=== PATIENT | male | born 1945 | race Caucasian/White ===

== ENCOUNTER 2018-01-19 15:46 | Inpatient (IN) ==
[2018-01-19] MEDS ORDERED: Sod Chloride 0.9% Inj 1,000 ML IV.SIG ONE (16:08)
[2018-01-19] MEDS ORDERED: Ibuprofen 600 MG Tablet PO ONE (16:08)
--- NOTE | 2018-01-19 16:11 | ED ---
HPI General Chief complaint: Urogenital-Male Stated complaint: EVAC/General Medical Time Seen by Provider: 01/19/18 15:54 History of Present Illness HPI narrative: Patient is a 72-year-old male presents emergency department with nausea vomiting and feeling very rundown. Patient was just released from a hospital in [place] yesterday after an overnight stay for diagnosis of prostatitis. He states is taken to dose of Macrobid. He drove down here on vacation about 50 miles from here he started becoming very queasy, his grandson finished a trip and then when they checked into the hotel he decided he needed to come to the hospital. Arrived by EVAC, 102.8 fever prior to arrival. He has no physical complaints of pain just feels very rundown. On review of system has noticed some discolored urine as well. No chest pain no shortness of breath no cough no congestion peer Related Data Home Medications Medication Instructions Recorded Confirmed Novolin N NPH U-100 Insulin 30 units INJ DAILY 01/19/18 01/19/18 Novolin R Regular U-100 Insuln 30 units INJ BID 01/19/18 01/19/18 alprazolam 0.25 mg PO BID 01/19/18 01/19/18 atorvastatin 80 mg PO DAILY 01/19/18 01/19/18 losartan-hydrochlorothiazide 1 tab PO DAILY 01/19/18 01/19/18 nitrofurantoin monohyd/m-cryst 100 mg PO BID 01/19/18 01/19/18 [Macrobid] pantoprazole 40 mg PO BID 01/19/18 01/19/18 Allergies Allergy/AdvReac Type Severity Reaction Status Date / Time azithromycin Allergy Unknown unknown Verified 01/19/18 16:08 Review of Systems Except as stated in HPI: all other systems reviewed are negative PMFSH Medical History Medical History Anxiety (Acute) Diabetes (Acute) High cholesterol (Acute) Hypertension (Acute) Surgical History Surgical History Hx of cholecystectomy (Acute) Social History Social History Substance History: No History of Abuse Second Hand Smoke Exposure: No Smoking Status: Never smoker How Often Do You Have a Drink Containing Alcohol: Never Recent Travel in [facility] within the Last 8 Weeks: Yes Recent Out of Country Travel within the Last 8 Weeks: No Exam Narrative Exam Narrative: GENERAL: Well-developed well-nourished, ill-appearing male. SKIN: Focused skin assessment warm/dry. HEAD: Atraumatic. Normocephalic. EYES: Pupils equal and round. No scleral icterus. No injection or drainage. ENT: No nasal bleeding or discharge. Mucous membranes pink and moist. NECK: Trachea midline. No JVD. CARDIOVASCULAR: Regular rhythm with mild tachycardia. no murmur appreciated. RESPIRATORY: No accessory muscle use. Clear to auscultation. Breath sounds equal bilaterally. GASTROINTESTINAL: Abdomen soft, non-tender, nondistended. Hepatic and splenic margins not palpable. MUSCULOSKELETAL: No obvious deformities. No clubbing. No cyanosis. No edema. NEUROLOGICAL: Awake and alert. No obvious cranial nerve deficits. Motor grossly within normal limits. Normal speech. PSYCHIATRIC: Appropriate mood and affect; insight and judgment normal. Course Initial Documented Vital Signs Temperature 102.8 F H 01/19/18 15:51 Pulse Rate 95 H 01/19/18 15:51 Respiratory Rate 19 01/19/18 15:51 Blood Pressure 220/97 H 01/19/18 15:51 Pulse Oximetry 94 L 01/19/18 15:51 Last Documented Vital Signs Temperature 100.1 F H 01/19/18 19:55 Pulse Rate 89 01/19/18 19:55 Respiratory Rate 18 01/19/18 19:55 Blood Pressure 106/62 01/19/18 19:55 Pulse Oximetry 96 01/19/18 19:55 Critical Care Time Critical Care Time: Yes Total Critical Care Time: 35 Attestation: Aggregate critical care time was 35 minutes. Time to perform other separately billable procedures was not included in the critical care time. My time did not include minutes spent treating any other patients simultaneously or on activities that did not directly contribute to the patient's treatment. The services I provided to this patient were to treat and/or prevent clinically significant deterioration that could result in: , Disability, Organ failure. I provided critical care services requiring my management, as noted below: Chart data review, documentation time, medication orders and management, vital sign assessments/reviewing monitor data, ordering and reviewing lab tests, ordering and interpreting/reviewing x-rays and diagnostic studies, care of the patient and discussion of the patient with the admitting physicians. Medical Decision Making MDM Narrative Medical decision making narrative: Patient room to the emergency department, he appears ill and toxic, blood cultures drawn, IV bolus was given 1 L normal saline, started on broad-spectrum antibiotics vancomycin and Zosyn. The patient was discussed that his consent with Dr. Machuca infectious disease doctor in [facility]. Her number is [phone]. Machuca states that his symptoms really started in July, he had a CT which showed a renal cyst and a thickened bladder wall. he was started on antibiotics.. He followed up with urologist and ultimately had both cystoscopy and biopsy of this cyst which did not show any infectious etiology. Over the next few months he had recurrent UTI symptoms, intermittently he grew out E. coli which was resistant to fluoroquinolones, and occasionally had UA which was negative, and urine cultures have been intermittently positive intermittently at the end of December he again had UTI symptoms which grew out E. coli. His urologist then consult to Dr. Machuca, the patient's family contacted Dr. Machuca and stated that they would like to be worked up expediently because of her going on vacation, January 16 he was admitted electively to their hospital in [place], UA was positive culture was negative. He was put on a few days of cefepime while in the hospital and ultimately diagnosed with chronic prostatitis and discharged on Macrobid which he has been taking. He had not been previously tested for gonorrhea chlamydia. Nonetheless today the patient does not appear well. I have started him on vancomycin and Zosyn, his lactic acid is negative, his white blood cell count per Dr. Machuca usually runs about 5.9, it is up to 9 today with a left shift. No bandemia. Creatinine once about 1.3-1.4. Today he is 1.4. Throughout his workup since July he has never had a diagnosed fever. I do not appreciate any other sources of infection on the patient's physical exam. Chest x-ray negative, CT abdomen pelvis does not show any obvious source of infection but does show a thickened bladder wall. Downs catheter was inserted, UA is negative. Patient appears somewhat improved but still he appeared very ill on arrival to the hospital and I think further workup is warranted at this time as an inpatient. This was discussed with the family and they are agreeable. Differential Diagnosis Differential Diagnosis: Sepsis, UTI, acute abdomen unlikely, pneumonia, indication reaction less likely. Lab Data Result diagrams: 01/19/18 16:13 01/19/18 16:13 Lab Results 07/14/18 07/14/18 07/14/18 Range/Units 16:08 16:13 16:13 WBC 9.2 (4.0-11.0) th/mm3 RBC 4.78 (4.50-5.90) mil/mm3 Hgb 15.8 (13.0-17.0) gm/dL Hct 45.1 (39.0-51.0) % MCV 94.3 (80.0-100.0) fL MCH 33.1 (27.0-34.0) pg MCHC 35.1 (32.0-36.0) % RDW 13.3 (11.6-17.2) % Plt Count 146 L (150-450) th/mm3 MPV 7.3 (7.0-11.0) fL Neut % (Auto) 89.0 H (16.0-70.0) % Lymph % (Auto) 6.0 L (9.0-44.0) % Alexander % (Auto) 3.9 (0.0-8.0) % Eos % (Auto) 0.9 (0.0-4.0) % Baso % (Auto) 0.2 (0.0-2.0) % Neut # (Auto) 8.2 H (1.8-7.7) th/mm3 Lymph # (Auto) 0.6 L (1.0-4.8) th/mm3 Alexander # (Auto) 0.4 (0.0-0.9) th/mm3 Eos # (Auto) 0.1 (0.0-0.4) th/mm3 Baso # (Auto) 0.0 (0.0-0.2) th/mm3 WBC Differential . Differential Comment Auto diff final Sodium 140 (136-145) meq/L Potassium 3.6 (3.5-5.1) meq/L Chloride 105 (98-107) meq/L Carbon Dioxide 26.7 (21.0-32.0) meq/L Anion Gap 8 (5-15) meq/L BUN 14 (7-18) mg/dL Creatinine 1.43 H (0.60-1.30) mg/dL Estimated GFR 48 L (>89) mL/min Random Glucose 197 H (74-106) mg/dL Lactic Acid 1.6 (0.4-2.0) mmol/L Calcium 8.7 (8.5-10.1) mg/dL Total Bilirubin 0.9 (0.2-1.0) mg/dL AST 22 (15-37) U/L ALT 30 (12-78) U/L Alkaline Phosphatase 108 (45-117) U/L Total Protein 7.8 (6.4-8.2) g/dL Albumin 3.9 (3.4-5.0) g/dL Urine Color (Yellw/Straw) Urine Clarity (Clear) Urine pH (5.0-8.5) Ur Specific [place] (1.002-1.035) Urine Protein (Neg-Trace) mg/dL Urine Glucose (UA) (Negative) mg/dL Urine Ketones (Negative) mg/dL Urine Occult Blood (Negative) Urine Nitrate (Negative) Urine Bilirubin (Negative) Urine Urobilinogen (Less than 2) mg/dL Ur Leukocyte Esterase (Negative) Urine RBC (0-3) /hpf Urine WBC (0-5) /hpf Urine Mucus (Occasional) /lpf Micro UA Comment Urine Culture Comments Chlam trachomat DNA PCR (Not Detect) N.gonorrhoeae DNA (PCR) (Not Detect) 01/19/18 01/19/18 Range/Units 18:04 18:04 WBC (4.0-11.0) th/mm3 RBC (4.50-5.90) mil/mm3 Hgb (13.0-17.0) gm/dL Hct (39.0-51.0) % MCV (80.0-100.0) fL MCH (27.0-34.0) pg MCHC (32.0-36.0) % RDW (11.6-17.2) % Plt Count (150-450) th/mm3 MPV (7.0-11.0) fL Neut % (Auto) (16.0-70.0) % Lymph % (Auto) (9.0-44.0) % Alexander % (Auto) (0.0-8.0) % Eos % (Auto) (0.0-4.0) % Baso % (Auto) (0.0-2.0) % Neut # (Auto) (1.8-7.7) th/mm3 Lymph # (Auto) (1.0-4.8) th/mm3 Alexander # (Auto) (0.0-0.9) th/mm3 Eos # (Auto) (0.0-0.4) th/mm3 Baso # (Auto) (0.0-0.2) th/mm3 WBC Differential Differential Comment Sodium (136-145) meq/L Potassium (3.5-5.1) meq/L Chloride (98-107) meq/L Carbon Dioxide (21.0-32.0) meq/L Anion Gap (5-15) meq/L BUN (7-18) mg/dL Creatinine (0.60-1.30) mg/dL Estimated GFR (>89) mL/min Random Glucose (74-106) mg/dL Lactic Acid (0.4-2.0) mmol/L Calcium (8.5-10.1) mg/dL Total Bilirubin (0.2-1.0) mg/dL AST (15-37) U/L ALT (12-78) U/L Alkaline Phosphatase (45-117) U/L Total Protein (6.4-8.2) g/dL Albumin (3.4-5.0) g/dL Urine Color Yellow (Yellw/Straw) Urine Clarity Clear (Clear) Urine pH 6.0 (5.0-8.5) Ur Specific [place] 1.013 (1.002-1.035) Urine Protein Negative (Neg-Trace) mg/dL Urine Glucose (UA) 150 H (Negative) mg/dL Urine Ketones Negative (Negative) mg/dL Urine Occult Blood Small H (Negative) Urine Nitrate Negative (Negative) Urine Bilirubin Negative (Negative) Urine Urobilinogen Less than 2 (Less than 2) mg/dL Ur Leukocyte Esterase Negative (Negative) Urine RBC 3 (0-3) /hpf Urine WBC 2 (0-5) /hpf Urine Mucus Few H (Occasional) /lpf Micro UA Comment Cath-culture not ind Urine Culture Comments Cath-cult not ind Chlam trachomat DNA PCR Not detected (Not Detect) N.gonorrhoeae DNA (PCR) Not detected (Not Detect) Imaging Data Radiologist's impression: Chest X-Ray 01/19/18 16:08 CONCLUSION: Cardiomegaly. No acute pulmonary disease. Abdomen/Pelvis CT 01/19/18 18:30 CONCLUSION: 1. No acute abnormality is seen. 2. Several low density masses in the liver. These are nonspecific. They likely represent cysts. 3. 2 right renal masses. These are nonspecific on this noncontrast CT examination. They likely represent cysts. 4. 1.3 cm left adrenal gland adenoma. 5. Downs catheter in place. Discharge Plan Discharge Disposition Patient Disposition: 30 Still Patient Discharge Condition Condition: Fair Discharge Details Diagnosis: Sepsis Physicians Team ED Provider: Osmin Silveira Primary Care Provider: NON STAFF,PROVIDER Attending Provider: Eliana Quintanilla Status ED Status: Admitted Patient
[2018-01-19 16:43] LABS: Baso % (Auto) 0.2 % (0.0-2.0); Eos # (Auto) 0.1 th/mm3 (0.0-0.4); Eos % (Auto) 0.9 % (0.0-4.0); Hematocrit 45.1 % (39.0-51.0); Hemoglobin 15.8 gm/dL (13.0-17.0); Lymph # (Auto) 0.6 th/mm3 (1.0-4.8); Mean Corpuscular HGB Conc 35.1 % (32.0-36.0); Mean Corpuscular Hemoglobin 33.1 pg (27.0-34.0); Mean Corpuscular Volume 94.3 fL (80.0-100.0); Mean Platelet Volume 7.3 fL (7.0-11.0); Mono # (Auto) 0.4 th/mm3 (0.0-0.9); Mono % (Auto) 3.9 % (0.0-8.0); Neut # (Auto) 8.2 th/mm3 (1.8-7.7); Platelet Count 146 th/mm3 (150-450); Red Blood Count 4.78 mil/mm3 (4.50-5.90); Red Cell Distribution Width 13.3 % (11.6-17.2); White Blood Count 9.2 th/mm3 (4.0-11.0)
[2018-01-19 16:51] LABS: Alkaline Phosphatase 108 U/L (45-117); Total Protein 7.8 g/dL (6.4-8.2)
[2018-01-19 16:52] LABS: Alanine Aminotransferase 30 U/L (12-78); Albumin 3.9 g/dL (3.4-5.0); Anion Gap 8 meq/L (5-15); Aspartate Aminotransferase 22 U/L (15-37); Blood Urea Nitrogen 14 mg/dL (7-18); Calcium 8.7 mg/dL (8.5-10.1); Carbon Dioxide 26.7 meq/L (21.0-32.0); Chloride 105 meq/L (98-107); Glomerular Filtration Rate 48 mL/min (>89); Glucose,Random 197 mg/dL (74-106); Potassium 3.6 meq/L (3.5-5.1); Sodium 140 meq/L (136-145)
--- NOTE | 2018-01-19 17:09 | XR ---
EXAM DATE: 01/19/2018 4:23 PM EDT AGE/SEX: 72 years / Male INDICATIONS: Fever. CLINICAL DATA: This is the patient's initial encounter. Patient reports that signs and symptoms have been present for 1 day and indicates a pain score of Nonresponsive. MEDICAL/SURGICAL HISTORY: None. None. COMPARISON: No prior exams available for comparison. FINDINGS: The cardiac silhouette is enlarged in transverse diameter. The aortic knob is prominent with tortuosi ty of the descending thoracic aorta. The lungs are free of acute parenchymal opacity. No pulmonary n odules or pleural effusions are identified. CONCLUSION: Cardiomegaly. No acute pulmonary disease. Electronically signed by: Ag Moore MD 01/19/2018 5:08 PM EDT
[2018-01-19] MEDS ORDERED: Vancomycin Inj 1,000 MG in Sodium Chlor 0.9% Inj 250 ML IV.SIG ONE (17:28)
[2018-01-19] MEDS ORDERED: Piperacil/Tazo 4.5 GM Premix 4.5 GM/100 ML BAG IV.SIG ONE (17:29)
[2018-01-19] MEDS ORDERED: Acetaminophen 325 MG Tablet PO ONE (17:50)
--- NOTE | 2018-01-19 19:16 | CT ---
EXAM DATE: 01/19/2018 7:05 PM EDT AGE/SEX: 72 years / Male INDICATIONS: Right abdominal pain. CLINICAL DATA: This is the patient's initial encounter. Patient reports that signs and symptoms have been present for 1 day and indicates a pain score of 7/10. MEDICAL/SURGICAL HISTORY: Hypertension. Diabetes. Cholecystectomy. RADIATION DOSE: 12.94 CTDI (mGy) COMPARISON: No prior exams available for comparison. TECHNIQUE: Multiple contiguous axial images were obtained through the abdomen. Images were obtained using multiple row detector helical technique. Using automated exposure control and adjustment of the mA and/or kV according to patient size, radiation dose was kept as low as reasonably achievable to o btain optimal diagnostic quality images. DICOM format image data is available electronically for rev iew and comparison. FINDINGS: Lower Lungs: There is mild increase parenchymal density seen in the posterior lower lobes bilaterally being more prominent on the right likely related to atelectasis. Liver: There are several low-density masses in the liver measuring up to 4.9 cm. These are nonspecifi c on this noncontrast CT examination. They likely represent cysts. The patient is status post cholecy stectomy. Spleen: Homogeneous density without enlargement. Pancreas: Unremarkable without mass or calcification. Kidneys: There is a 3.6 cm mass at the lateral mid right kidney. There is also a 0.9 cm exophytic ma ss off the posterior superior medial right kidney. No hydronephrosis or renal stones are seen. Adrenal Glands: There is a 1.3 cm left adrenal gland mass measuring 9.9 Hounsfield units consistent with an adenoma. Aorta: The aorta and proximal iliac vessels are grossly unremarkable without aneurysmal dilation. Bowel/Mesentery: The bowel loops are grossly unremarkable. The cecum and sigmoid colon have a normal configuration. The appendix appears normal. Abdominal Wall: Intact. Retroperitoneum: No evidence of adenopathy in the retrocrural, para-aortic, or deep pelvic regions. Bladder: There is a Downs catheter within a decompressed bladder. Reproductive Organs: No abnormal masses seen. There is a prostatic calcification. Inguinal: The inguinal region is unremarkable without evidence of adenopathy. Bony Structures: Unremarkable. CONCLUSION: 1. No acute abnormality is seen. 2. Several low density masses in the liver. These are nonspecific. They likely represent cysts. 3. 2 right renal masses. These are nonspecific on this noncontrast CT examination. They likely repre sent cysts. 4. 1.3 cm left adrenal gland adenoma. 5. Downs catheter in place. Electronically signed by: Vladislav Sharpe MD 01/19/2018 7:15 PM EDT
[2018-01-19 19:46] LABS: Bilirubin,Urine Negative (Negative); Clarity,Urine Clear (Clear); Color,Urine Yellow (Yellw/Straw); Glucose,Urine (UA) 150 mg/dL (Negative); Leukocyte Esterase,Urine Negative (Negative); Mucus,Urine Few /lpf (Occasional); Nitrite,Urine Negative (Negative); Specific Gravity,Urine 1.013 (1.002-1.035)
[2018-01-19] MEDS ORDERED: Dextrose 50% in Water 50 ML Vial IV.PUSH PRN (20:17)
[2018-01-19] MEDS ORDERED: Bisacodyl 10 MG Supp RECTAL PRN (20:18)
--- NOTE | 2018-01-19 20:21 | P.HPIM ---
History of Present Illness Primary Care Physician: PROVIDER NON STAFF History of Present Illness: This is a 72-year-old male with a PMH of HTN, Hyperlipidemia, Anxiety and DM who presented to the ER with complaints of generalized malaise in addition to few episodes of nausea and vomiting x1 day. Originally from [place], here on vacation, seen in [place] prior to arrival for similar complaints, per patient he was told he had Prostatitis and was d/c'd on Macrobid which he has been taking. Today w/ increasing weakness and generally unwell. Temp 102.8 per EMS. Denies chest pain, cough or sick contacts. On arrival, BP 220/97, HR 95, O2 sat 94% on RA, Temp 102.8. CBC essentially unremarkable except for platelets 146 and elevated neutrophil count. Creatinine 1.43, no previous labs for comparison. UA negative for UTI. GC/Chlamydia negative. CT Abdomen/Pelvis no acute abnormality, several low-density masses in the liver nonspecific, 2 right renal masses likely cysts, 1.3 cm left adrenal gland adenoma. S/p Blood Cultures, Vanc/Zosyn in ER. - Diagnosis (1) SIRS (systemic inflammatory response syndrome) (2) UTI (urinary tract infection) (3) Renal insufficiency (4) HTN (hypertension) (5) DM (diabetes mellitus) Inpatient Certification: I certify that the inpatient services were ordered in accordance with Medicare regulations governing the order. This includes certification that hospital inpatient services are reasonable and necessary and in the case of services not specified as inpatient-only under 42 CFR 419.22(n), that they are appropriately provided as inpatient services in accordance to with the 2-midnight benchmark under 43 CFR 412.3(e) Estimated Total Length of Stay (Days): 2 Plans for Post Hospital Care: Not yet determined Review of Systems All other systems reviewed negative except as stated in HPI PMFSH - History History Provided By: Patient - Medical History Medical History: Medical History (Last Updated 01/19/18 @ 16:09 by Pavel Hu) Anxiety Diabetes High cholesterol Hypertension - Surgical History Surgical History: Surgical History (Last Updated 01/19/18 @ 16:09 by Pavel Hu) Hx of cholecystectomy - Tobacco History Second Hand Smoke Exposure: No Smoking Status: Never smoker - Alcohol History How Often Do You Have a Drink Containing Alcohol: Never - Substance Use History Substance History: No History of Abuse - Travel History Recent Travel in the [place] Within the Last 8 Weeks: Yes Recent Travel Out of the Country Within the Last 8 Weeks: No - Immunization History Tetanus Immunization: Unsure Medications and Allergies Allergies Allergy/AdvReac Type Severity Reaction Status Date / Time azithromycin Allergy Unknown unknown Verified 01/19/18 16:08 Home Medications Medication Instructions Recorded Confirmed Type Novolin N NPH U-100 Insulin 30 units INJ DAILY 01/19/18 01/19/18 History Novolin R Regular U-100 Insuln 30 units INJ BID 01/19/18 01/19/18 History alprazolam 0.25 mg PO BID 01/19/18 01/19/18 History atorvastatin 80 mg PO DAILY 01/19/18 01/19/18 History losartan-hydrochlorothiazide 1 tab PO DAILY 01/19/18 01/19/18 History nitrofurantoin monohyd/m-cryst 100 mg PO BID 01/19/18 01/19/18 History [Macrobid] pantoprazole 40 mg PO BID 01/19/18 01/19/18 History Exam Vital signs: Vital Signs 01/19/18 15:51 01/19/18 16:08 01/19/18 16:10 Temperature 102.8 F H Pulse Rate 95 H 102 H 102 H Respiratory Rate 19 22 Blood Pressure 220/97 H 175/76 H Pulse Oximetry 94 L 95 01/19/18 19:55 Temperature 100.1 F H Pulse Rate 89 Respiratory Rate 18 Blood Pressure 106/62 Pulse Oximetry 96 Intake & Output 01/19/18 01/19/18 01/20/18 06:59 18:59 06:59 Weight 95.254 kg Narrative: PE: GENERAL: Very pleasant elderly white male in no acute distress, although appears to feel weak/tired. HEENT: PERRLA, EOMI. No scleral icterus or conjunctival pallor. No lid lag or facial droop. CARDIOVASCULAR: Regular rate and rhythm. No obvious murmurs to auscultation. No chest tenderness to palpation. RESPIRATORY: No obvious rhonchi or wheezing. Clear to auscultation. Breath sounds equal bilaterally. GASTROINTESTINAL: Abdomen soft, non-tender, nondistended. BS normal. MUSCULOSKELETAL: Extremities without clubbing, cyanosis, or edema. No obvious deformities. NEUROLOGICAL: Awake, alert and oriented x4. No focal neurologic deficits. Moving both upper and lower extremities spontaneously. Results - Labs CBC & Chem 7: 01/19/18 16:13 01/19/18 16:13 Labs: Short CBC 01/19/18 Range/Units 16:13 WBC 9.2 (4.0-11.0) th/mm3 Hgb 15.8 (13.0-17.0) gm/dL Hct 45.1 (39.0-51.0) % Plt Count 146 L (150-450) th/mm3 BMP 01/19/18 16:13 Sodium 140 Potassium 3.6 Chloride 105 Carbon Dioxide 26.7 BUN 14 Creatinine 1.43 H Calcium 8.7 Liver Function 01/19/18 Range/Units 16:13 Total Bilirubin 0.9 (0.2-1.0) mg/dL AST 22 (15-37) U/L ALT 30 (12-78) U/L Alkaline Phosphatase 108 (45-117) U/L Albumin 3.9 (3.4-5.0) g/dL Urine 01/19/18 Range/Units 18:04 Urine Color Yellow (Yellw/Straw) Urine Clarity Clear (Clear) Urine pH 6.0 (5.0-8.5) Ur Specific [place] 1.013 (1.002-1.035) Urine Protein Negative (Neg-Trace) mg/dL Urine Glucose (UA) 150 H (Negative) mg/dL - Imaging Impressions Chest X-Ray 01/19/18 16:08 CONCLUSION: Cardiomegaly. No acute pulmonary disease. Abdomen/Pelvis CT 01/19/18 18:30 CONCLUSION: 1. No acute abnormality is seen. 2. Several low density masses in the liver. These are nonspecific. They likely represent cysts. 3. 2 right renal masses. These are nonspecific on this noncontrast CT examination. They likely represent cysts. 4. 1.3 cm left adrenal gland adenoma. 5. Downs catheter in place. Caprini VTE Risk Assessment Caprini VTE Risk Assessment: No/Low Risk (score <= 1) Caprini Risk Assessment Model: Point Value = 1 Point Value = 2 Point Value = 3 Point Value = 5 Age 41-60 Minor surgery BMI > 25 kg/m2 Swollen legs Varicose veins or History of unexplained or recurrent spontaneous Oral contraceptives or hormone replacement Sepsis (< 1 month) Serious lung disease, including pneumonia (< 1 month) Abnormal pulmonary function Acute myocardial infarction Congestive heart failure (< 1 month) History of inflammatory bowel disease Medical patient at bed rest Age 61-74 Arthroscopic surgery Major open surgery (> 45 min) Laparoscopic surgery (> 45 min) Malignancy Confined to bed (> 72 hours) Immobilizing plaster cast Central venous access Age >= 75 History of VTE Family history of VTE Factor V Leiden Prothrombin [id number] Lupus anticoagulant Anticardiolipin antibodies Elevated serum homocysteine Heparin-induced thrombocytopenia Other congenital or acquired thrombophilia Stroke (< 1 month) Elective arthroplasty Hip, pelvis, or leg fracture Acute spinal cord injury (< 1 month) Prophylaxis Regimen: Total Risk Factor Score Risk Level Prophylaxis Regimen 0-1 Low Early ambulation 2 Moderate Order ONE of the following: *Sequential Compression Device (SCD) *Heparin 5000 units SQ BID 3-4 Higher Order ONE of the following medications: *Heparin 5000 units SQ TID *Enoxaparin/Lovenox 40 mg SQ daily (WT < 150 kg, CrCl > 30 mL/min) *Enoxaparin/Lovenox 30 mg SQ daily (WT < 150 kg, CrCl > 10-29 mL/min) *Enoxaparin/Lovenox 30 mg SQ BID (WT < 150 kg, CrCl > 30 mL/min) AND/OR *Sequential Compression Device (SCD) 5 or more Highest Order ONE of the following medications: *Heparin 5000 units SQ TID (Preferred with Epidurals) *Enoxaparin/Lovenox 40 mg SQ daily (WT < 150 kg, CrCl > 30 mL/min) *Enoxaparin/Lovenox 30 mg SQ daily (WT < 150 kg, CrCl > 10-29 mL/min) *Enoxaparin/Lovenox 30 mg SQ BID (WT < 150 kg, CrCl > 30 mL/min) AND *Sequential Compression Device (SCD) Assessment and Plan - Assessment (1) SIRS (systemic inflammatory response syndrome) Code(s): R65.10 - Systemic inflammatory response syndrome (SIRS) of non- infectious origin without acute organ dysfunction Status: Acute (2) UTI (urinary tract infection) Code(s): N39.0 - Urinary tract infection, site not specified Status: Acute (3) Renal insufficiency Code(s): N28.9 - Disorder of kidney and ureter, unspecified Status: Acute (4) HTN (hypertension) Code(s): I10 - Essential (primary) hypertension Status: Acute (5) DM (diabetes mellitus) Code(s): E11.9 - Type 2 diabetes mellitus without complications Status: Acute - Plan A/P: 1. SIRS: Temp 102.8, HR 122, Source-suspected UTI, however U/a negative suspect due to recent antibiotic therapy. S/p Blood Cultures, will follow, continue w/ IV Abx for presumptive UTI. IVF for hydration. 2. UTI: recent admit in [place], found to have UTI/Prostatitis and d/c'd on Macrobid x6wks, will continue w/ IV Abx for presumptive UTI despite negative U/a -likely from antibiotic therapy. Follow up cultures as above. 3. Renal Insufficiency: Creatinine 1.43, no previous labs for comparison, presumably new, IVF for hydration, monitor I/O, repeat labs in am 4. HTN: Uncontrolled, BP 220's on arrival, will monitor closely, antihypertensives as needed for BP >180 5. DM: Sliding scale w/ Accu-Cheks, hold Insulin for now in light of decreased PO intake. 6. DVT Prophylaxis: SCD/Teds 7. Social work for d/c planning as needed. 8. Case discussed w/ ER physician at length, labs/records/imaging reviewed by me.
[2018-01-19] MEDS: Senna/Docusate Sodium 8.6/50 MG Tablet PO SCH (21:44)
[2018-01-19] MEDS: Insulin NovoLOG Aspart Correctional Sugar Inj SQ SCH (21:44)
[2018-01-19] MEDS: ALPRAZolam 0.25 MG Tablet PO SCH (21:44)
[2018-01-19] MEDS: Sod Chloride 0.9% Inj 1,000 ML IV.CONT SCH (23:42)
[2018-01-20 05:43] LABS: Baso % (Auto) 0.2 % (0.0-2.0); Eos # (Auto) 0.3 th/mm3 (0.0-0.4); Eos % (Auto) 4.2 % (0.0-4.0); Hematocrit 40.3 % (39.0-51.0); Hemoglobin 14.2 gm/dL (13.0-17.0); Lymph # (Auto) 0.5 th/mm3 (1.0-4.8); Lymph % (Auto) 7.8 % (9.0-44.0); Mean Corpuscular HGB Conc 35.3 % (32.0-36.0); Mean Corpuscular Hemoglobin 32.7 pg (27.0-34.0); Mean Corpuscular Volume 92.6 fL (80.0-100.0); Mean Platelet Volume 7.3 fL (7.0-11.0); Mono # (Auto) 0.3 th/mm3 (0.0-0.9); Mono % (Auto) 5.5 % (0.0-8.0); Neut # (Auto) 5.2 th/mm3 (1.8-7.7); Neut % (Auto) 82.3 % (16.0-70.0); Platelet Count 119 th/mm3 (150-450); Red Blood Count 4.35 mil/mm3 (4.50-5.90); Red Cell Distribution Width 13.2 % (11.6-17.2); White Blood Count 6.4 th/mm3 (4.0-11.0)
[2018-01-20 06:10] LABS: Alanine Aminotransferase 21 U/L (12-78); Albumin 2.7 g/dL (3.4-5.0); Alkaline Phosphatase 80 U/L (45-117); Anion Gap 10 meq/L (5-15); Aspartate Aminotransferase 17 U/L (15-37); Blood Urea Nitrogen 15 mg/dL (7-18); Calcium 7.9 mg/dL (8.5-10.1); Chloride 108 meq/L (98-107); Glomerular Filtration Rate 45 mL/min (>89); Glucose,Random 85 mg/dL (74-106); Potassium 3.1 meq/L (3.5-5.1); Sodium 143 meq/L (136-145); Total Protein 6.2 g/dL (6.4-8.2)
[2018-01-20] MEDS: Acetaminophen 325 MG Tablet PO PRN ×2 (08:16→21:29)
[2018-01-20] MEDS: ALPRAZolam 0.25 MG Tablet PO SCH ×2 (08:17→21:30)
[2018-01-20] MEDS: Senna/Docusate Sodium 8.6/50 MG Tablet PO SCH ×2 (08:17→21:30)
[2018-01-20] MEDS: Sod Chloride 0.9% Inj 1,000 ML IV.CONT SCH ×2 (08:33→18:48)
[2018-01-20] MEDS: Insulin NovoLOG Aspart Correctional Sugar Inj SQ SCH ×4 (08:37→22:39)
--- NOTE | 2018-01-20 13:31 | P.PN ---
Subjective Interval history: Follow-up SIRS/UTI January 20, 2018-patient seen and examined, had episode of nausea overnight but no emesis. Denies any current chest pain or shortness of breath however did complain of muscle spasm. Physical Exam Vital signs: Vital Signs 01/19/18 15:51 01/19/18 16:08 01/19/18 16:10 Temperature 102.8 F H Pulse Rate 95 H 102 H 102 H Respiratory Rate 19 22 Blood Pressure 220/97 H 175/76 H Pulse Oximetry 94 L 95 01/19/18 19:55 01/19/18 21:40 01/19/18 21:53 Temperature 100.1 F H 99.7 F H Pulse Rate 89 80 Respiratory Rate 18 18 Blood Pressure 106/62 109/55 L Pulse Oximetry 96 96 96 01/20/18 00:00 01/20/18 04:00 01/20/18 08:00 Temperature 98.6 F 99.1 F 98.7 F Pulse Rate 79 82 79 Respiratory Rate 18 16 18 Blood Pressure 110/62 130/63 134/65 Pulse Oximetry 96 96 94 L 01/20/18 08:30 Temperature Pulse Rate 82 Respiratory Rate Blood Pressure Pulse Oximetry Intake & Output 01/19/18 01/20/18 01/20/18 18:59 06:59 18:59 Intake Total 1100 / 1100 Balance 1100 / 1100 Weight 95.254 kg 91.1 kg Intake: IV 1100 / 1100 NS Inj 1,000 ML @ 100 mls/hr IV 1000 / 1000 .CONT .Q10H GIANNI Rx#:[id number] Maxipime Inj 1,000 MG In NS Inj 100 / 100 100 ML @ 200 mls/hr IV.SIG Q12H GIANNI Rx#:[id number] Other: Weight On Admission 91.1 kg Narrative: GENERAL: NAD SKIN: Warm and dry. HEAD: Normocephalic. EYES: No scleral icterus. No injection or drainage. NECK: Supple, trachea midline. No JVD or lymphadenopathy. CARDIOVASCULAR: Regular rate and rhythm without murmurs, gallops, or rubs. RESPIRATORY: Breath sounds equal bilaterally. No accessory muscle use. GASTROINTESTINAL: Abdomen soft, non-tender, nondistended. MUSCULOSKELETAL: No cyanosis, or edema. BACK: Nontender without obvious deformity. No CVA tenderness. - Urinary Catheter Management Indwelling Urethral Catheter Cath placed during this visit: yes Reason for continuing: Acute urinary retention Insertion date: 01/19/18 Insertion time: 18:15 Results - Labs CBC & Chem 7: 01/20/18 04:53 01/20/18 00:45 Laboratory Results - last 24 hr 01/19/18 01/19/18 01/19/18 16:08 16:13 16:13 WBC 9.2 RBC 4.78 Hgb 15.8 Hct 45.1 MCV 94.3 MCH 33.1 MCHC 35.1 RDW 13.3 Plt Count 146 L MPV 7.3 Neut % (Auto) 89.0 H Lymph % (Auto) 6.0 L [place] % (Auto) 3.9 Eos % (Auto) 0.9 Baso % (Auto) 0.2 Neut # (Auto) 8.2 H Lymph # (Auto) 0.6 L [place] # (Auto) 0.4 Eos # (Auto) 0.1 Baso # (Auto) 0.0 WBC Differential . Differential Comment Auto diff final Sodium 140 Potassium 3.6 Chloride 105 Carbon Dioxide 26.7 Anion Gap 8 BUN 14 Creatinine 1.43 H Estimated GFR 48 L POC Glucose Random Glucose 197 H Lactic Acid 1.6 Calcium 8.7 Total Bilirubin 0.9 AST 22 ALT 30 Alkaline Phosphatase 108 Total Protein 7.8 Albumin 3.9 Urine Color Urine Clarity Urine pH Ur Specific [place] Urine Protein Urine Glucose (UA) Urine Ketones Urine Occult Blood Urine Nitrate Urine Bilirubin Urine Urobilinogen Ur Leukocyte Esterase Urine RBC Urine WBC Urine Mucus Micro UA Comment Urine Culture Comments Chlam trachomat DNA PCR N.gonorrhoeae DNA (PCR) 01/19/18 01/19/18 01/19/18 18:04 18:04 21:41 WBC RBC Hgb Hct MCV MCH MCHC RDW Plt Count MPV Neut % (Auto) Lymph % (Auto) [place] % (Auto) Eos % (Auto) Baso % (Auto) Neut # (Auto) Lymph # (Auto) [place] # (Auto) Eos # (Auto) Baso # (Auto) WBC Differential Differential Comment Sodium Potassium Chloride Carbon Dioxide Anion Gap BUN Creatinine Estimated GFR POC Glucose 92 Random Glucose Lactic Acid Calcium Total Bilirubin AST ALT Alkaline Phosphatase Total Protein Albumin Urine Color Yellow Urine Clarity Clear Urine pH 6.0 Ur Specific [place] 1.013 Urine Protein Negative Urine Glucose (UA) 150 H Urine Ketones Negative Urine Occult Blood Small H Urine Nitrate Negative Urine Bilirubin Negative Urine Urobilinogen Less than 2 Ur Leukocyte Esterase Negative Urine RBC 3 Urine WBC 2 Urine Mucus Few H Micro UA Comment Cath-culture not ind Urine Culture Comments Cath-cult not ind Chlam trachomat DNA PCR Not detected N.gonorrhoeae DNA (PCR) Not detected 01/20/18 01/20/18 01/20/18 00:45 04:53 07:46 WBC 6.4 RBC 4.35 L Hgb 14.2 Hct 40.3 MCV 92.6 MCH 32.7 MCHC 35.3 RDW 13.2 Plt Count 119 L MPV 7.3 Neut % (Auto) 82.3 H Lymph % (Auto) 7.8 L [place] % (Auto) 5.5 Eos % (Auto) 4.2 H Baso % (Auto) 0.2 Neut # (Auto) 5.2 Lymph # (Auto) 0.5 L [place] # (Auto) 0.3 Eos # (Auto) 0.3 Baso # (Auto) 0.0 WBC Differential . Differential Comment Auto diff final Sodium 143 Potassium 3.1 L Chloride 108 H Carbon Dioxide 25.0 Anion Gap 10 BUN 15 Creatinine 1.52 H Estimated GFR 45 L POC Glucose 121 H Random Glucose 85 D Lactic Acid Calcium 7.9 L D Total Bilirubin 1.0 AST 17 ALT 21 Alkaline Phosphatase 80 Total Protein 6.2 L D Albumin 2.7 L D Urine Color Urine Clarity Urine pH Ur Specific [place] Urine Protein Urine Glucose (UA) Urine Ketones Urine Occult Blood Urine Nitrate Urine Bilirubin Urine Urobilinogen Ur Leukocyte Esterase Urine RBC Urine WBC Urine Mucus Micro UA Comment Urine Culture Comments Chlam trachomat DNA PCR N.gonorrhoeae DNA (PCR) 01/20/18 11:54 WBC RBC Hgb Hct MCV MCH MCHC RDW Plt Count MPV Neut % (Auto) Lymph % (Auto) [place] % (Auto) Eos % (Auto) Baso % (Auto) Neut # (Auto) Lymph # (Auto) [place] # (Auto) Eos # (Auto) Baso # (Auto) WBC Differential Differential Comment Sodium Potassium Chloride Carbon Dioxide Anion Gap BUN Creatinine Estimated GFR POC Glucose 160 H Random Glucose Lactic Acid Calcium Total Bilirubin AST ALT Alkaline Phosphatase Total Protein Albumin Urine Color Urine Clarity Urine pH Ur Specific [place] Urine Protein Urine Glucose (UA) Urine Ketones Urine Occult Blood Urine Nitrate Urine Bilirubin Urine Urobilinogen Ur Leukocyte Esterase Urine RBC Urine WBC Urine Mucus Micro UA Comment Urine Culture Comments Chlam trachomat DNA PCR N.gonorrhoeae DNA (PCR) Microbiology 01/19/18 16:13 Blood - Peripheral Aerobic Blood Culture - Preliminary No growth in 1 day 01/19/18 16:13 Blood - Peripheral Anaerobic Blood Culture - Preliminary No growth in 1 day 01/19/18 16:08 Blood - Peripheral Aerobic Blood Culture - Preliminary No growth in 1 day 01/19/18 16:08 Blood - Peripheral Anaerobic Blood Culture - Preliminary No growth in 1 day - Imaging Impressions Chest X-Ray 01/19/18 16:08 CONCLUSION: Cardiomegaly. No acute pulmonary disease. Abdomen/Pelvis CT 01/19/18 18:30 CONCLUSION: 1. No acute abnormality is seen. 2. Several low density masses in the liver. These are nonspecific. They likely represent cysts. 3. 2 right renal masses. These are nonspecific on this noncontrast CT examination. They likely represent cysts. 4. 1.3 cm left adrenal gland adenoma. 5. Downs catheter in place. Assessment and Plan - Assessment (1) SIRS (systemic inflammatory response syndrome) Code(s): R65.10 - Systemic inflammatory response syndrome (SIRS) of non- infectious origin without acute organ dysfunction Status: Acute (2) UTI (urinary tract infection) Code(s): N39.0 - Urinary tract infection, site not specified Status: Acute (3) Renal insufficiency Code(s): N28.9 - Disorder of kidney and ureter, unspecified Status: Acute (4) HTN (hypertension) Code(s): I10 - Essential (primary) hypertension Status: Acute (5) DM (diabetes mellitus) Code(s): E11.9 - Type 2 diabetes mellitus without complications Status: Acute - Plan 72-year-old man with 1. SIRS: Source-suspected UTI, however U/a negative suspect due to recent antibiotic therapy. S/p Blood Cultures, continue w/ IV Abx for presumptive UTI. IVF for hydration. 2. UTI: recent admit in [place], found to have UTI/Prostatitis and d/c'd on Macrobid x6wks, continue w/ IV Abx for presumptive UTI despite negative U/a- likely from antibiotic therapy. Follow up cultures as above. 3. Renal Insufficiency: Creatinine 1.43, no previous labs for comparison, presumably new, IVF for hydration, monitor I/O, 4. HTN: Normotensive, antihypertensives as needed for BP >180 5. DM: Sliding scale w/ Accu-Cheks, hold Insulin for now in light of decreased PO intake. 6. DVT Prophylaxis: SCD/Teds 7. Social work for d/c planning as needed. Urinary retention Per patient's daughter, patient had history of urinary retention after Downs was discontinued in the past
[2018-01-20] MEDS ORDERED: Aluminum/Magnesium/Simethacone Susp 30 ML UDC PO PRN (15:20)
[2018-01-20] MEDS: Temazepam 15 MG Capsule PO PRN (22:39)
[2018-01-21] MEDS: Sod Chloride 0.9% Inj 1,000 ML IV.CONT SCH ×2 (06:18→17:28)
[2018-01-21] MEDS: Acetaminophen 325 MG Tablet PO PRN (09:30)
[2018-01-21 10:45] LABS: Baso % (Auto) 0.4 % (0.0-2.0); Eos # (Auto) 0.3 th/mm3 (0.0-0.4); Eos % (Auto) 5.2 % (0.0-4.0); Hematocrit 38.8 % (39.0-51.0); Hemoglobin 13.6 gm/dL (13.0-17.0); Lymph # (Auto) 1.2 th/mm3 (1.0-4.8); Lymph % (Auto) 21.9 % (9.0-44.0); Mean Corpuscular Hemoglobin 32.7 pg (27.0-34.0); Mean Corpuscular Volume 93.6 fL (80.0-100.0); Mean Platelet Volume 7.9 fL (7.0-11.0); Mono # (Auto) 0.4 th/mm3 (0.0-0.9); Mono % (Auto) 8.1 % (0.0-8.0); Neut # (Auto) 3.4 th/mm3 (1.8-7.7); Neut % (Auto) 64.4 % (16.0-70.0); Platelet Count 124 th/mm3 (150-450); Red Blood Count 4.15 mil/mm3 (4.50-5.90); Red Cell Distribution Width 13.2 % (11.6-17.2); White Blood Count 5.3 th/mm3 (4.0-11.0)
[2018-01-21 11:10] LABS: Alanine Aminotransferase 25 U/L (12-78); Albumin 2.8 g/dL (3.4-5.0); Anion Gap 9 meq/L (5-15); Aspartate Aminotransferase 18 U/L (15-37); Blood Urea Nitrogen 10 mg/dL (7-18); Calcium 7.7 mg/dL (8.5-10.1); Carbon Dioxide 23.8 meq/L (21.0-32.0); Chloride 110 meq/L (98-107); Glomerular Filtration Rate 56 mL/min (>89); Glucose,Random 147 mg/dL (74-106); Potassium 3.6 meq/L (3.5-5.1); Sodium 143 meq/L (136-145)
[2018-01-21 11:13] LABS: Alkaline Phosphatase 73 U/L (45-117); Total Protein 6.4 g/dL (6.4-8.2)
--- NOTE | 2018-01-21 11:42 | P.PNIM ---
Subjective Interval history: Feeling better. No problems with abdominal pain. Would like Downs catheter out to try to urinate. Physical Exam Vital signs: Vital Signs 01/20/18 12:00 01/20/18 16:00 01/20/18 18:10 Temperature 98.6 F 98.6 F Pulse Rate 71 71 70 Respiratory Rate 18 18 Blood Pressure 152/68 H 152/68 H Pulse Oximetry 95 95 01/20/18 19:40 01/20/18 20:00 01/20/18 23:40 Temperature 100.3 F H Pulse Rate 82 80 74 Respiratory Rate 20 Blood Pressure 135/64 Pulse Oximetry 93 L 01/21/18 00:00 01/21/18 04:00 01/21/18 08:00 Temperature 98.2 F 98.1 F 97.7 F Pulse Rate 76 71 76 Respiratory Rate 19 20 18 Blood Pressure 115/61 102/55 L 148/72 H Pulse Oximetry 95 93 L 96 Intake & Output 01/20/18 01/21/18 01/21/18 18:59 06:59 18:59 Intake Total 2820 / 2820 2050 / 2050 Output Total 4500 / 4500 1800 / 1800 Balance -1680 / -1680 250 / 250 Intake: IV 2100 / 2100 1100 / 1100 NS Inj 1,000 ML @ 100 mls/hr IV 2000 / 2000 1000 / 1000 .CONT .Q10H GIANNI Rx#:[id number] Maxipime Inj 1,000 MG In NS Inj 100 / 100 100 / 100 100 ML @ 200 mls/hr IV.SIG Q12H GIANNI Rx#:[id number] Oral 720 / 720 950 / 950 Output: Urine Amount (Catheter) 4500 / 4500 1800 / 1800 Indwelling Urethral Catheter 4500 / 4500 1800 / 1800 Other: # Voids 2 Date of Last Bowel Movement 01/20/18 # Bowel Movements 2 Narrative: GENERAL: This is a well-nourished, well-developed patient, in no apparent distress. CARDIOVASCULAR: Regular rate and rhythm without murmurs, gallops, or rubs. RESPIRATORY: Clear to auscultation. Breath sounds equal bilaterally. No wheezes , rales, or rhonchi. GASTROINTESTINAL: Abdomen soft, non-tender, nondistended. Normal active bowel sounds MUSCULOSKELETAL: Extremities without clubbing, cyanosis, or edema. NEURO: Alert & Oriented x4 to person, place, time, situation. Moves all ext x4 - Urinary Catheter Management Indwelling Urethral Catheter Cath placed during this visit: yes Reason for continuing: Acute urinary retention Insertion date: 01/19/18 Insertion time: 18:15 Results - Labs CBC & Chem 7: 01/21/18 08:53 01/21/18 08:53 Laboratory Results - last 24 hr 01/20/18 01/20/18 01/20/18 11:54 17:33 21:35 WBC RBC Hgb Hct MCV MCH MCHC RDW Plt Count MPV Neut % (Auto) Lymph % (Auto) [place] % (Auto) Eos % (Auto) Baso % (Auto) Neut # (Auto) Lymph # (Auto) [place] # (Auto) Eos # (Auto) Baso # (Auto) WBC Differential Differential Comment Sodium Potassium Chloride Carbon Dioxide Anion Gap BUN Creatinine Estimated GFR POC Glucose 160 H 148 H 190 H Random Glucose Calcium Total Bilirubin AST ALT Alkaline Phosphatase Total Protein Albumin 01/21/18 01/21/18 01/21/18 08:27 08:53 08:53 WBC 5.3 RBC 4.15 L Hgb 13.6 Hct 38.8 L MCV 93.6 MCH 32.7 MCHC 35.0 RDW 13.2 Plt Count 124 L MPV 7.9 Neut % (Auto) 64.4 Lymph % (Auto) 21.9 [place] % (Auto) 8.1 H Eos % (Auto) 5.2 H Baso % (Auto) 0.4 Neut # (Auto) 3.4 Lymph # (Auto) 1.2 [place] # (Auto) 0.4 Eos # (Auto) 0.3 Baso # (Auto) 0.0 WBC Differential . Differential Comment Auto diff final Sodium 143 Potassium 3.6 Chloride 110 H Carbon Dioxide 23.8 Anion Gap 9 BUN 10 Creatinine 1.27 Estimated GFR 56 L POC Glucose 155 H Random Glucose 147 H Calcium 7.7 L Total Bilirubin 0.7 AST 18 ALT 25 Alkaline Phosphatase 73 Total Protein 6.4 Albumin 2.8 L Microbiology 01/19/18 16:13 Blood - Peripheral Aerobic Blood Culture - Preliminary No growth in 2 days 01/19/18 16:13 Blood - Peripheral Anaerobic Blood Culture - Preliminary No growth in 2 days 01/19/18 16:08 Blood - Peripheral Aerobic Blood Culture - Preliminary No growth in 2 days 01/19/18 16:08 Blood - Peripheral Anaerobic Blood Culture - Preliminary No growth in 2 days Assessment and Plan - Assessment (1) UTI (urinary tract infection) Code(s): N39.0 - Urinary tract infection, site not specified Status: Acute (2) Renal insufficiency Code(s): N28.9 - Disorder of kidney and ureter, unspecified Status: Acute (3) HTN (hypertension) Code(s): I10 - Essential (primary) hypertension Status: Chronic (4) DM (diabetes mellitus) Code(s): E11.9 - Type 2 diabetes mellitus without complications Status: Chronic - Plan 1. Sepsis present on admission: Source-suspected UTI, however U/a negative suspect due to recent antibiotic therapy. S/p Blood Cultures, continue w/ IV Abx cefepime E for presumptive UTI. IVF for hydration. Will discontinue Downs catheter 2. UTI: recent admit in [place], found to have UTI/Prostatitis and d/c'd on Macrobid x6wks, continue w/ IV Abx for presumptive UTI despite negative U/a- likely from antibiotic therapy. Follow up urine cultures and blood cultures as above. 3. Renal Insufficiency with likely underlying chronic kidney disease stage III from diabetes: Creatinine 1.43, no previous labs for comparison, presumably new , IVF for hydration, monitor I/O, 4. HTN, essential chronic: Normotensive, antihypertensives as needed for BP > 180 5. DM type II with long-term insulin use: Sliding scale w/ Accu-Cheks, restart NPH insulin now that patient's oral intake is improved. 6. DVT prophylaxisLovenox Discharge Planning: Likely discharge to home in the morning if blood culture remains negative. (3) HTN (hypertension) Qualifiers: Hypertension type: essential hypertension Qualified Code(s): I10 - Essential (primary) hypertension (4) DM (diabetes mellitus) Qualifiers: Diabetes mellitus type: type 2 Diabetes mellitus penitentiary insulin use: with penitentiary use Diabetes mellitus complication status: with kidney complications Diabetes mellitus complication detail: with chronic kidney disease Chronic kidney disease stage: stage 3 (moderate) Qualified Code(s): E11.22 - Type 2 diabetes mellitus with diabetic chronic kidney disease; N18.3 - Chronic kidney disease, stage 3 (moderate); Z79.4 - exterminator helper (current) use of insulin
--- NOTE | 2018-01-21 12:13 | ECG ---
Date Performed: 01/19/2018 Time Performed: 17:39:26 PTAGE: 72 years EKG: Sinus rhythm INCOMPLETE RIGHT BUNDLE BRANCH BLOCK NONSPECIFIC T-WAVE ABNORMALITY BORDERLINE ECG NO PREVIOUS TRACING DOCTOR: Rusty Benedict Interpretating Date/Time 01/21/2018 12:06:24
[2018-01-21] MEDS: ALPRAZolam 0.25 MG Tablet PO SCH ×2 (12:29→21:35)
[2018-01-21] MEDS: Insulin NovoLOG Aspart Correctional Sugar Inj SQ SCH ×4 (12:29→21:54)
[2018-01-21] MEDS: Senna/Docusate Sodium 8.6/50 MG Tablet PO SCH ×2 (12:30→21:34)
[2018-01-21] MEDS: Temazepam 15 MG Capsule PO PRN (21:38)
[2018-01-22] MEDS: Sod Chloride 0.9% Inj 1,000 ML IV.CONT SCH (02:32)
[2018-01-22] MEDS: ALPRAZolam 0.25 MG Tablet PO SCH (08:30)
[2018-01-22] MEDS: Acetaminophen 325 MG Tablet PO PRN (08:30)
[2018-01-22] MEDS: Senna/Docusate Sodium 8.6/50 MG Tablet PO SCH (08:34)
--- NOTE | 2018-01-22 08:40 | P.DS ---
Date of admission: 01/19/18 21:00 Primary care physician: PROVIDER NON STAFF Anticipated date of discharge: 01/22/18 Brief History from admission: Obtained from admitting physician's history and physical. This is a 72-year-old male with a PMH of HTN, Hyperlipidemia, Anxiety and DM who presented to the ER with complaints of generalized malaise in addition to few episodes of nausea and vomiting x1 day. Originally from [place], here on vacation, seen in [place] prior to arrival for similar complaints, per patient he was told he had Prostatitis and was d/c'd on Macrobid which he has been taking. Today w/ increasing weakness and generally unwell. Temp 102.8 per EMS. Denies chest pain, cough or sick contacts. On arrival, BP 220/97, HR 95, O2 sat 94% on RA, Temp 102.8. CBC essentially unremarkable except for platelets 146 and elevated neutrophil count. Creatinine 1.43, no previous labs for comparison. UA negative for UTI. GC/Chlamydia negative. CT Abdomen/Pelvis no acute abnormality, several low-density masses in the liver nonspecific, 2 right renal masses likely cysts, 1.3 cm left adrenal gland adenoma. S/p Blood Cultures, Vanc/Zosyn in ER. DS: Diagnosis - Discharge Diagnosis (1) Sepsis Status: Resolved Diagnosis: Principal (2) UTI (urinary tract infection) Status: Resolved Diagnosis: Principal (3) Renal insufficiency Status: Resolved Diagnosis: Secondary (4) HTN (hypertension) Status: Chronic Diagnosis: Secondary (5) DM (diabetes mellitus) Status: Chronic Diagnosis: Secondary (6) CKD stage 3 due to type 2 diabetes mellitus Status: Chronic Diagnosis: Secondary DS: Medications - Discharge Medications Prescriptions: cefaclor 500 mg PO Q8H #12 cap DS: Summary Hospital Course: These are the medical issues addressed during this hospitalization: 1. Sepsis present on admission: Source-suspected UTI, however U/a negative suspect due to recent antibiotic therapy. S/p Blood Cultures which was negative to growth, continue w/ IV Abx cefepime for presumptive UTI. IVF for hydration. Patient voided without any difficulty after Downs catheter was discontinued during the hospitalization. Patient currently doing well and sepsis resolved during the hospitalization. He has now gained maximum benefit from hospitalization and is ready to be discharged to home. Prescription for the cefaclor for 4 more days given. 2. UTI: recent admit in [place], found to have UTI/Prostatitis and d/c'd on Macrobid x6wks, continue w/ IV Abx for presumptive UTI despite negative U/a- likely from antibiotic therapy. Follow up urine cultures and blood cultures as above. 3. Renal Insufficiency with likely underlying chronic kidney disease stage III from diabetes: Creatinine 1.43, no previous labs for comparison, presumably new , IVF for hydration, monitor I/O, 4. HTN, essential chronic: Normotensive, antihypertensives as needed for BP > 180 5. DM type II with long-term insulin use: Sliding scale w/ Accu-Cheks, restart NPH insulin home dosing during hospitalization. 6. DVT prophylaxisLovenox - Time Spent with Patient Total time spent providing and/or coordinating discharge services: - Quality: VTE Deep Vein Thrombosis/Pulmonary Embolism Present on Admission: No Exam Vital signs: Vital Signs 01/21/18 12:00 01/21/18 16:00 01/21/18 20:00 Temperature 98.3 F 98.3 F 98.4 F Pulse Rate 71 72 77 Respiratory Rate 18 18 18 Blood Pressure 116/58 L 155/72 H 147/69 H Pulse Oximetry 95 95 97 01/22/18 00:00 01/22/18 04:00 Temperature 98 F 97.9 F Pulse Rate 65 62 Respiratory Rate 17 16 Blood Pressure 134/63 118/58 L Pulse Oximetry 98 95 Intake & Output 01/21/18 01/22/18 01/22/18 18:59 06:59 18:59 Intake Total 1820 / 1820 1100 / 1100 Output Total 1500 / 1500 Balance 320 / 320 1099 / 1099 Weight 93.7 kg Intake: IV 1100 / 1100 1100 / 1100 NS Inj 1,000 ML @ 100 mls/hr IV 1000 / 1000 1000 / 1000 .CONT .Q10H GIANNI Rx#:[id number] Maxipime Inj 1,000 MG In NS Inj 100 / 100 100 / 100 100 ML @ 200 mls/hr IV.SIG Q12H GIANNI Rx#:[id number] Oral 720 / 720 Output: Urine 1500 / 1500 Stool Other: # Voids 4 # Bowel Movements 0 Narrative: GENERAL: This is a well-nourished, well-developed patient, in no apparent distress. CARDIOVASCULAR: Regular rate and rhythm without murmurs, gallops, or rubs. RESPIRATORY: Clear to auscultation. Breath sounds equal bilaterally. No wheezes , rales, or rhonchi. GASTROINTESTINAL: Abdomen soft, non-tender, nondistended. Normal active bowel sounds MUSCULOSKELETAL: Extremities without clubbing, cyanosis, or edema. NEURO: Alert & Oriented x4 to person, place, time, situation. Moves all ext x4 Results Procedures completed during hospitalization: none Labs on day of discharge: Labs from last 24 hours 01/22/18 01/21/18 01/21/18 07:28 19:43 17:01 WBC RBC Hgb Hct MCV MCH MCHC RDW Plt Count MPV Neut % (Auto) Lymph % (Auto) [place] % (Auto) Eos % (Auto) Baso % (Auto) Neut # (Auto) Lymph # (Auto) [place] # (Auto) Eos # (Auto) Baso # (Auto) WBC Differential Differential Comment Sodium Potassium Chloride Carbon Dioxide Anion Gap BUN Creatinine Estimated GFR POC Glucose 187 H 123 H 81 Random Glucose Calcium Total Bilirubin AST ALT Alkaline Phosphatase Total Protein Albumin 01/21/18 01/21/18 01/21/18 12:35 08:53 08:53 WBC 5.3 RBC 4.15 L Hgb 13.6 Hct 38.8 L MCV 93.6 MCH 32.7 MCHC 35.0 RDW 13.2 Plt Count 124 L MPV 7.9 Neut % (Auto) 64.4 Lymph % (Auto) 21.9 [place] % (Auto) 8.1 H Eos % (Auto) 5.2 H Baso % (Auto) 0.4 Neut # (Auto) 3.4 Lymph # (Auto) 1.2 [place] # (Auto) 0.4 Eos # (Auto) 0.3 Baso # (Auto) 0.0 WBC Differential . Differential Comment Auto diff final Sodium 143 Potassium 3.6 Chloride 110 H Carbon Dioxide 23.8 Anion Gap 9 BUN 10 Creatinine 1.27 Estimated GFR 56 L POC Glucose 213 H Random Glucose 147 H Calcium 7.7 L Total Bilirubin 0.7 AST 18 ALT 25 Alkaline Phosphatase 73 Total Protein 6.4 Albumin 2.8 L Preliminary micro results at discharge 01/19/18 16:13 Aerobic Blood Culture - Preliminary Blood - Peripheral No growth in 2 days Anaerobic Blood Culture - Preliminary No growth in 2 days 01/19/18 16:08 Aerobic Blood Culture - Preliminary Blood - Peripheral No growth in 2 days Anaerobic Blood Culture - Preliminary No growth in 2 days - Impressions ITS Impressions Chest X-Ray 01/19/18 16:08 CONCLUSION: Cardiomegaly. No acute pulmonary disease. Abdomen/Pelvis CT 01/19/18 18:30 CONCLUSION: 1. No acute abnormality is seen. 2. Several low density masses in the liver. These are nonspecific. They likely represent cysts. 3. 2 right renal masses. These are nonspecific on this noncontrast CT examination. They likely represent cysts. 4. 1.3 cm left adrenal gland adenoma. 5. Downs catheter in place. Discharge Plan - Discharge Disposition Patient Disposition: 01 Discharge Home - Discharge Condition Condition: Fair - Discharge Order Discharge Orders: Discharge Order (Routine); Ordered 01/22/18 Ordered By: Jocelyne Green - Discharge Details Anticipated Discharge Date: 01/22/18 - Physicians Team Primary Care Provider: NON STAFF,PROVIDER Attending Provider: Jocelyne Green
[2018-01-22] MEDS: Insulin NovoLOG Aspart Correctional Sugar Inj SQ SCH (09:26)
== END 2018-01-22 11:07 | disposition home or self-care (01) ==
LOC: NEPE 15:46 → NEDA 21:00 → N04 21:45
PROVIDERS: ADMIT Family Medicine; ATTEND Family Medicine